=== PATIENT | female | born 1945 | race Caucasian/White ===

== ENCOUNTER 2022-10-23 09:14 | Emergency (ER) | payer MEDICARE ==
[~2022-10-23] VITALS: Ht 170.2 cm; Wt 52.4 kg
[2022-10-23 09:42] VITALS: BP 158/71; PULSE 63; RESP 18; TEMP 97.7; O2SAT 97
[2022-10-23] MEDS ORDERED: NAPR-56 PO (11:01)
== END 2022-10-23 11:14 | disposition home or self-care (01) ==
LOC: ER 09:16
DX: N64.4 Mastodynia (principal); Z79.899 Other long term (current) drug therapy; Z98.890 Other specified postprocedural states
CPT/HCPCS: 99282